=== PATIENT | female | born 1970 | race Caucasian/White ===

== ENCOUNTER → 2017-09-13 | Outpatient (CLI) | payer BC ==
[2017-09-14 15:11] LABS: Crab IgE <0.35 kU/L (<0.35); Crab IgE Class CLASS 0
[2017-09-14 15:12] LABS: Avocado Class CLASS 0; Banana IgE Class CLASS 0; Hazelnut IgE <0.35 kU/L (<0.35); Hazelnut IgE Class CLASS 0; Kiwi IgE <0.35 kU/L (<0.35); Latex IgE Class CLASS 0; Lobster IgE <0.35 kU/L (<0.35); Lobster IgE Class CLASS 0; Salmon IgE <0.35 kU/L (<0.35); Salmon IgE Class CLASS 0
== END | disposition home or self-care (01) ==
LOC: LABWHC1 13:53
PROVIDERS: ATTEND Otolaryngology
DX: J30.89 Other allergic rhinitis (principal)
CPT/HCPCS: 36415; 86003

== ENCOUNTER 2018-09-16 15:43 | Emergency (ER) | payer BC ==
[2018-09-16] MEDS ORDERED: SODIUM CHLORIDE 0.9% 500 ML 500 ML IV STA (15:49)
[2018-09-16] MEDS ORDERED: ASPIRIN 81 MG PO STA (15:49)
[2018-09-16 16:28] LABS: Basophils # (A) 0.1 k/uL (0-0.2); Basophils % (A) 1 %; Eosinophils # (A) 0.1 k/uL (0-0.7); Eosinophils % (A) 1 %; HCT 43.1 % (34.0-46.0); HGB 14.2 gm/dL (11.4-16.0); Lymphocytes # (A) 1.1 k/uL (1.0-4.8); Lymphocytes % (A) 17 %; MCH 29.8 pg (25.0-35.0); MCHC 33.1 g/dL (31.0-37.0); Mean Platelet Volume 8.2; Monocytes # (A) 0.3 k/uL (0-1.0); Monocytes % (A) 5 %; Neutrophils # (A) 4.6 k/uL (1.3-7.7); Neutrophils % (A) 74 %; Platelet Count 241 k/uL (150-450); RBC 4.78 m/uL (3.80-5.40); RDW 12.4 % (11.5-15.5); WBC 6.2 k/uL (3.8-10.6)
[2018-09-16 16:32] LABS: ALT 26 U/L (9-52); AST 27 U/L (14-36); Alkaline Phosphatase 57 U/L (38-126); Anion Gap 10 mmol/L; Blood Urea Nitrogen 15 mg/dL (7-17); Calcium 10.4 mg/dL (8.4-10.2); Carbon Dioxide 24 mmol/L (22-30); Chloride 106 mmol/L (98-107); Glucose 98 mg/dL (74-99); Magnesium 1.8 mg/dL (1.6-2.3); Sodium 140 mmol/L (137-145); Total Bilirubin 0.5 mg/dL (0.2-1.3); Total Protein 8.4 g/dL (6.3-8.2)
--- NOTE | 2018-09-16 16:41 | ED ---
Arrhythmia/Palpitations HPI - General Chief Complaint: Arrhythmia/Palpitations Stated Complaint: Heart Palpitations Time Seen by Provider: 09/16/18 15:48 Source: patient Mode of arrival: ambulatory Limitations: no limitations - History of Present Illness Initial Comments: 47 year old female presenting today for chief complaint of palpitations. Patient states the past 5 years she has had heart palpitations that come and go she noticed that increased during menstruation and at night. Patient states she is currently menstruating. Patient states the past 2 months they seem to be increasing. Patient takes Xanax for severe anxiety. Patient states that also for the past 5 years she has had a flashing light in her vision bilaterally she states happens every 2-5 minutes. She states she has had extensive examination by ophthalmology, who states she has no damage to her retina. Patient denies a visual loss or diplopia. She was told to follow-up with a mechanical manufacturing engineer which she has not. Patient states that the times when she has palpitations she notices occasional sharp pinch the left side of her chest. She states at times it radiates towards the back or the shoulder. Patient denies a pattern with exertion. She states it happens often times at night. Patient states that she has had multiple DVTs that occur only after a . She states she has had 4 C-sections total. Patient states she did have a left lower extremity DVT after her fourth and has had chronic pain and swelling in that leg since. Patient denies any shortness of breath. She states she is very anxious. Patient states her palpitations this time began last night increased around 1:30 PM today and that is when she felt the pinch in the left side of her chest. Patient denies any chest pressure jaw pain or extremity paresthesias. Patient denies any speech changes or headache. Patient states she took 0.25 of Xanax prior to arrival. Upon arrival patient states her palpitations have resolved she states she is starting to feel better. Patient states upon review of systems that she has a chronic cough, for years denies any changes. Denies hemo ptysis denies any recent surgeries or travel. Remaining review of systems negative. Patient denies any fever or chills night sweats dysuria urgency frequency. - Related Data Previous Rx's Medication Instructions Recorded ALPRAZolam [Xanax] 0.5 mg PO HS PRN 4 Days #4 tab 09/16/18 Allergies Allergy/AdvReac Type Severity Reaction Status Date / Time codeine Allergy Unknown Verified 09/16/18 15:47 Review of Systems ROS Statement: Those systems with pertinent positive or pertinent negative responses have been documented in the HPI. ROS Other: All systems not noted in ROS Statement are negative. Past Medical History Additional Past Medical History / Comment(s): palpitations History of Any Multi-Drug Resistant Organisms: None Reported Past Surgical History: Section Past Psychological History: Anxiety Smoking Status: Never smoker Past Alcohol Use History: None Reported Past Drug Use History: None Reported General Exam - General Exam Comments Initial Comments: General: The patient is awake and alert, in no distress, and does not appear acutely ill. Eye: +3 mm pupils are equal, round and reactive to light, extra-ocular movements are intact. No nystagmus. There is normal conjunctiva bilaterally. No signs of icterus. Ears, nose, mouth and throat: There are moist mucous membranes and no oral lesions. Neck: The neck is supple, there is no tenderness or JVD. Cardiovascular: There is a regular rate and rhythm. No murmur, rub or gallop is appreciated. Respiratory: Lungs are clear to auscultation, respirations are non-labored, breath sounds are equal. No wheezes, stridor, rales, or rhonchi. Gastrointestinal: Soft, non-distended, non-tender abdomen without masses or organomegaly noted. There is no rebound or guarding present. Bowel sounds are unremarkable. Musculoskeletal: Normal ROM, no tenderness. Strength 5/5. Sensation intact. DP and radial pulses equal bilaterally 2+. Neurological: A&O x 3. CN II-XII intact, There are no obvious motor or sensory deficits. Coordination appears grossly intact. Speech is normal. Skin: Skin is warm and dry and no rashes or lesions are noted. No lower extremity edema noted. Negative Homans. No pain to palpation of the cast posteriorly bilaterally. Psychiatric: Cooperative, appropriate mood & affect, normal judgment. Limitations: no limitations Course Vital Signs 09/16/18 09/16/18 15:43 17:49 Temperature 97.7 F 97.9 F Pulse Rate 77 89 Respiratory 18 16 Rate Blood Pressure 143/88 120/74 O2 Sat by Pulse 99 98 Oximetry EKG Findings - EKG Comments: EKG Findings:: Ventricular rate 85 bpm, ID interval 114 ms, short duration 88 ms, QT/QTC 366/435 ms. This is normal sinus there is nonspecific ST abnormality. NO ST elevation or depression. No findings consistent with ischemic disease EKG was evaluated by myself as well as my attending provider Dr Slade. Medical Decision Making - Medical Decision Making Appearing 47-year-old female with history of anxiety presenting today for chief complaint of heart palpitations. She states that she has no current symptoms. Patient states she did take 0.25 of her 's Xanax prior to arrival she states this seemed to help. Patient states she has had these symptoms on and off for the past 5 years. Patient denies any shortness of breath. Patient describes the pain as sharp. Patient this appears atypical she denies any pattern with exertion. Upon examination there is no lower extremity edema. No heart murmur. Chest x-ray within normal limits. Initial troponin negative. Patient continues to remain asymptomatic. No EKG findings consistent with ischemia. This EKG was evaluated in person by attending provider Dr. Mendieta. Viewed left her studies and imaging studies. At this time feel this could be possibly anxiety reaction however we recommended further outpatient evaluation with cardiology including Holter monitor. Patient is agreeable care plan as well as discharge this time. Patient provided prescription for 0.5 mg Xanax nightly x4 days. Opiate use and administration of medication as discussed at length the patient verbalizes understanding. Patient was discharged appearing well, attending provider agreeable with plan. Return parameters were discussed at length with patient prior to patient's discharge verbalizes understanding. - Lab Data Result diagrams: 09/16/18 16:00 09/16/18 16:00 Lab Results 09/16/18 09/16/18 09/16/18 Range/Units 16:00 16:00 16:00 WBC 6.2 (3.8-10.6) k/uL RBC 4.78 (3.80-5.40) m/uL Hgb 14.2 (11.4-16.0) gm/dL Hct 43.1 (34.0-46.0) % MCV 90.0 (80.0-100.0) fL MCH 29.8 (25.0-35.0) pg MCHC 33.1 (31.0-37.0) g/dL RDW 12.4 (11.5-15.5) % Plt Count 241 (150-450) k/uL Neutrophils % 74 % Lymphocytes % 17 % Monocytes % 5 % Eosinophils % 1 % Basophils % 1 % Neutrophils # 4.6 (1.3-7.7) k/uL Lymphocytes # 1.1 (1.0-4.8) k/uL Monocytes # 0.3 (0-1.0) k/uL Eosinophils # 0.1 (0-0.7) k/uL Basophils # 0.1 (0-0.2) k/uL PT 10.3 (9.0-12.0) sec INR 1.0 (<1.2) APTT 25.5 (22.0-30.0) sec D-Dimer 0.28 (<0.60) mg/L FEU Sodium 140 (137-145) mmol/L Potassium 4.0 (3.5-5.1) mmol/L Chloride 106 (98-107) mmol/L Carbon Dioxide 24 (22-30) mmol/L Anion Gap 10 mmol/L BUN 15 (7-17) mg/dL Creatinine 0.84 (0.52-1.04) mg/dL Est GFR (CKD-EPI)AfAm >90 (>60 ml/min/1.73 sqM) Est GFR (CKD-EPI)NonAf 84 (>60 ml/min/1.73 sqM) Glucose 98 (74-99) mg/dL Calcium 10.4 H (8.4-10.2) mg/dL Magnesium 1.8 (1.6-2.3) mg/dL Total Bilirubin 0.5 (0.2-1.3) mg/dL AST 27 (14-36) U/L ALT 26 (9-52) U/L Alkaline Phosphatase 57 (38-126) U/L Troponin I (0.000-0.034) ng/mL Total Protein 8.4 H (6.3-8.2) g/dL Albumin 5.0 (3.5-5.0) g/dL TSH 1.640 (0.465-4.680) mIU/L Urine Color Urine Appearance (Clear) Urine pH (5.0-8.0) Ur Specific [place] (1.001-1.035) Urine Protein (Negative) Urine Glucose (UA) (Negative) Urine Ketones (Negative) Urine Blood (Negative) Urine Nitrite (Negative) Urine Bilirubin (Negative) Urine Urobilinogen (<2.0) mg/dL Ur Leukocyte Esterase (Negative) Urine RBC (0-5) /hpf Urine WBC (0-5) /hpf Urine Opiates Screen (NotDetected) Ur Oxycodone Screen (NotDetected) Urine Methadone Screen (NotDetected) Ur Propoxyphene Screen (NotDetected) Ur Barbiturates Screen (NotDetected) U Tricyclic Antidepress (NotDetected) Ur Phencyclidine Scrn (NotDetected) Ur Amphetamines Screen (NotDetected) U Methamphetamines Scrn (NotDetected) U Benzodiazepines Scrn (NotDetected) Urine Cocaine Screen (NotDetected) U Marijuana (THC) Screen (NotDetected) 09/16/18 09/16/18 Range/Units 16:00 16:45 WBC (3.8-10.6) k/uL RBC (3.80-5.40) m/uL Hgb (11.4-16.0) gm/dL Hct (34.0-46.0) % MCV (80.0-100.0) fL MCH (25.0-35.0) pg MCHC (31.0-37.0) g/dL RDW (11.5-15.5) % Plt Count (150-450) k/uL Neutrophils % % Lymphocytes % % Monocytes % % Eosinophils % % Basophils % % Neutrophils # (1.3-7.7) k/uL Lymphocytes # (1.0-4.8) k/uL Monocytes # (0-1.0) k/uL Eosinophils # (0-0.7) k/uL Basophils # (0-0.2) k/uL PT (9.0-12.0) sec INR (<1.2) APTT (22.0-30.0) sec D-Dimer (<0.60) mg/L FEU Sodium (137-145) mmol/L Potassium (3.5-5.1) mmol/L Chloride (98-107) mmol/L Carbon Dioxide (22-30) mmol/L Anion Gap mmol/L BUN (7-17) mg/dL Creatinine (0.52-1.04) mg/dL Est GFR (CKD-EPI)AfAm (>60 ml/min/1.73 sqM) Est GFR (CKD-EPI)NonAf (>60 ml/min/1.73 sqM) Glucose (74-99) mg/dL Calcium (8.4-10.2) mg/dL Magnesium (1.6-2.3) mg/dL Total Bilirubin (0.2-1.3) mg/dL AST (14-36) U/L ALT (9-52) U/L Alkaline Phosphatase (38-126) U/L Troponin I <0.012 (0.000-0.034) ng/mL Total Protein (6.3-8.2) g/dL Albumin (3.5-5.0) g/dL TSH (0.465-4.680) mIU/L Urine Color Colorless Urine Appearance Clear (Clear) Urine pH 5.0 (5.0-8.0) Ur Specific [place] 1.002 (1.001-1.035) Urine Protein Negative (Negative) Urine Glucose (UA) Negative (Negative) Urine Ketones Negative (Negative) Urine Blood Moderate H (Negative) Urine Nitrite Negative (Negative) Urine Bilirubin Negative (Negative) Urine Urobilinogen <2.0 (<2.0) mg/dL Ur Leukocyte Esterase Negative (Negative) Urine RBC 1 (0-5) /hpf Urine WBC <1 (0-5) /hpf Urine Opiates Screen Not Detected (NotDetected) Ur Oxycodone Screen Not Detected (NotDetected) Urine Methadone Screen Not Detected (NotDetected) Ur Propoxyphene Screen Not Detected (NotDetected) Ur Barbiturates Screen Not Detected (NotDetected) U Tricyclic Antidepress Not Detected (NotDetected) Ur Phencyclidine Scrn Not Detected (NotDetected) Ur Amphetamines Screen Not Detected (NotDetected) U Methamphetamines Scrn Not Detected (NotDetected) U Benzodiazepines Scrn Detected H (NotDetected) Urine Cocaine Screen Not Detected (NotDetected) U Marijuana (THC) Screen Not Detected (NotDetected) Disposition Clinical Impression: Palpitations, Atypical chest pain, Anxiety Disposition: HOME SELF-CARE Condition: Good Instructions (If sedation given, give patient instructions): Heart Palpitations (ED) Additional Instructions: Please use medication as discussed. Please follow-up with cardiology as discussed and primary care provider. Please return to emergency room if the symptoms increase or worsen or for any other concerns-return of pain. Prescriptions: ALPRAZolam [Xanax] 0.5 mg PO HS PRN 4 Days #4 tab PRN Reason: Anxiety Is patient prescribed a controlled substance at d/c from ED?: Yes When asked, does pt state using other controlled substances?: No If prescribed controlled substance>3 days was MAPS reviewed?: No Referrals: None,Stated [Primary Care Provider] - 1-2 days Isaac Wilkerson MD [REFERRING] - 1-2 days Arielle Edmonds DO [REFERRING] - 1-2 days Esequiel Whitfield MD [STAFF PHYSICIAN] - 1-2 days Time of Disposition: 17:31
[2018-09-16 16:43] LABS: D-Dimer 0.28 mg/L FEU (<0.60); Partial Thromboplastin Time 25.5 sec (22.0-30.0); Prothrombin Time 10.3 sec (9.0-12.0)
--- NOTE | 2018-09-16 16:56 | XR ---
EXAMINATION TYPE: XR chest 2V DATE OF EXAM: 09/16/2018 COMPARISON: NONE HISTORY: Palpitations TECHNIQUE: Frontal and lateral views of the chest are obtained. FINDINGS: There is no focal air space opacity, pleural effusion, or pneumothorax seen. The cardiac silhouette size is within normal limits. The osseous structures are intact. IMPRESSION: No acute cardiopulmonary process.
[2018-09-16 16:57] LABS: Appearance,Urine Clear (Clear); Bilirubin,Urine Negative (Negative); Blood,Urine Moderate (Negative); Color,Urine Colorless; Glucose,Urine (UA) Negative (Negative); Ketones,Urine Negative (Negative); Leukocyte Esterase,Urine Negative (Negative); Nitrite,Urine Negative (Negative); Protein,Urine Negative (Negative); RBC,Urine 1 /hpf (0-5); Specific Gravity,Urine 1.002 (1.001-1.035); Urobilinogen,Urine <2.0 mg/dL (<2.0); WBC,Urine <1 /hpf (0-5)
[2018-09-16 17:03] LABS: Amphetamine Screen,Urine Not Detected (NotDetected); Barbiturate Screen,Urine Not Detected (NotDetected); Benzodiazepines Screen,Urine Detected (NotDetected); Cocaine Screen,Urine Not Detected (NotDetected); Methadone Screen, Urine Not Detected (NotDetected); Opiate Screen,Urine Not Detected (NotDetected); Oxycodone Screen, Urine Not Detected (NotDetected); Phencyclidine Screen,Urine Not Detected (NotDetected); Tricyclic Antidepressant,Urine Not Detected (NotDetected); Urn Cannabinoid Scrn Not Detected (NotDetected)
[2018-09-16 17:51] VITALS: BP 120/74; PULSE 89; RESP 16; TEMP 97.9
== END 2018-09-16 17:51 | disposition home or self-care (01) ==
LOC: EC 15:43
DX: F41.9 Anxiety disorder, unspecified (principal); R07.89 Other chest pain; H53.149 Visual discomfort, unspecified; G89.29 Other chronic pain; M79.89 Other specified soft tissue disorders; M79.605 Pain in left leg; R05 Cough; Z88.5 Allergy status to narcotic agent; Z86.718 Personal history of other venous thrombosis and embolism; Z86.79 Personal history of other diseases of the circulatory system
CPT/HCPCS: 36415; 71046; 80053; 80306; 81001; 83735; 84443; 84484; 85025; 85379; 85610; 85730; 93005; 96360; 99285

== ENCOUNTER 2020-11-29 19:06 | Emergency (ER) | payer BC ==
[2020-11-29 19:11] VITALS: TEMP 98
[2020-11-29] MEDS: HYDROmorphone 1 MG/ML 1 ML SYRINGE IVP STA (19:47)
[2020-11-29 20:07] LABS: Basophils # (A) 0.1 k/uL (0-0.2); Basophils % (A) 1 %; Eosinophils # (A) 0.1 k/uL (0-0.7); Eosinophils % (A) 1 %; HCT 42.1 % (34.0-46.0); HGB 14.4 gm/dL (11.4-16.0); Lymphocytes # (A) 1.1 k/uL (1.0-4.8); Lymphocytes % (A) 13 %; MCH 31.8 pg (25.0-35.0); MCHC 34.2 g/dL (31.0-37.0); MCV 92.9 fL (80.0-100.0); Mean Platelet Volume 9.5; Monocytes # (A) 0.4 k/uL (0-1.0); Monocytes % (A) 4 %; Neutrophils # (A) 6.6 k/uL (1.3-7.7); Neutrophils % (A) 80 %; Platelet Count 204 k/uL (150-450); RBC 4.53 m/uL (3.80-5.40); RDW 11.8 % (11.5-15.5); WBC 8.2 k/uL (3.8-10.6)
[2020-11-29 20:17] LABS: ALT 19 U/L (4-34); AST 33 U/L (14-36); African American GFR (CKD) >90 (>60 ml/min/1.73 sqM); Albumin 4.5 g/dL (3.5-5.0); Alkaline Phosphatase 53 U/L (38-126); Anion Gap 11 mmol/L; Blood Urea Nitrogen 17 mg/dL (7-17); Calcium 9.8 mg/dL (8.4-10.2); Carbon Dioxide 21 mmol/L (22-30); Chloride 107 mmol/L (98-107); Glucose 93 mg/dL (74-99); Non-African American GFR(CKD) 90 (>60 ml/min/1.73 sqM); Sodium 139 mmol/L (137-145); Total Bilirubin 0.4 mg/dL (0.2-1.3); Total Protein 7.6 g/dL (6.3-8.2)
--- NOTE | 2020-11-29 20:57 | CT ---
EXAMINATION TYPE: CT abdomen pelvis w con DATE OF EXAM: 11/29/2020 COMPARISON: None HISTORY: Fall from ladder, RT flank pain, tailbone/low back pain. CT DLP: 526.3 mGycm Automated exposure control for dose reduction was used. CONTRAST: Performed with IV Contrast, patient injected with 100 mL of Isovue 300. Images obtained from the diaphragm to the floor the pelvis with IV contrast. Lung bases are clear. There is no pleural effusion. Heart size is normal. There is no pericardial eff usion. Liver spleen stomach pancreas gallbladder appear intact. The bile ducts are not dilated. There is 1 cm cyst in the lateral right lobe of the liver. There is no adrenal mass. Kidneys show satisfac tory contrast opacification. There is no hydronephrosis. Delayed images show normal renal excretion. There is no retroperitoneal adenopathy. Bladder distends smoothly. Uterus is anteverted. There is no inguinal hernia. There is no evidence of a pelvic mass. There is no free fluid in the pelvis. There is no mesenteric edema. There is no ascites or free air. Appendix appears normal. There is no bowel obstruction. The lumbar vertebra have normal alignment. There is 15% compression deformity of L1 vertebral body. T his appears to be an acute compression fracture. The posterior elements are intact. Bony pelvis is in tact. Hip joints are intact. Sacroiliac joints are normal. There is no lumbar paraspinal mass. IMPRESSION: Acute mild compression fracture of L1 vertebral body.
--- NOTE | 2020-11-29 21:23 | ED ---
Fall HPI - General Chief Complaint: Fall Stated Complaint: Fell off a ladder Time Seen by Provider: 11/29/20 19:16 Source: patient, family, RN notes reviewed Mode of arrival: wheelchair - History of Present Illness Initial Comments: Patient is a 50-year-old female that presents to the emergency department complaining of fall from a 6 foot stepladder. She notes she was approximately 4 feet off the ground when she lost her balance falling landing on her butt. She notes that she has right flank pain and some tailbone pain. She notes that she is able to urinate and use the bathroom. She notes that she has radicular symptoms down her right leg. She denied any other issues or complaints. She noted that she does not take blood thinners and did not lose consciousness or h it her head. She denied any chest pain shortness of breath headache nausea vomiting diarrhea constipation fever fatigue chills. - Related Data Previous Rx's Medication Instructions Recorded Ketorolac [Toradol] 10 mg PO Q8HR #15 tab 11/29/20 Allergies Allergy/AdvReac Type Severity Reaction Status Date / Time codeine Allergy Hives/Shortness Verified 11/29/20 19:37 of Breath coffee (Coffea arabica) Allergy Hives/Shortness Verified 11/29/20 19:37 of Breath egg Allergy Hives/Shortness Verified 11/29/20 19:37 of Breath Milk Containing Products Allergy Hives/Shortness Verified 11/29/20 19:37 [Dairy] of Breath Mushroom Allergy Hives/Shortness Verified 11/29/20 19:37 of Breath mushroom Allergy Hives/Shortness Verified 11/29/20 19:37 of Breath peanut Allergy Hives/Shortness Verified 11/29/20 19:37 of Breath pineapple Allergy Hives/Shortness Verified 11/29/20 19:37 of Breath Yeast Allergy Hives/Shortness Verified 11/29/20 19:37 of Breath Review of Systems ROS Statement: Those systems with pertinent positive or pertinent negative responses have been documented in the HPI. ROS Other: All systems not noted in ROS Statement are negative. Past Medical History Additional Past Medical History / Comment(s): palpitations History of Any Multi-Drug Resistant Organisms: None Reported Past Surgical History: Section Past Psychological History: Anxiety Past Alcohol Use History: None Reported Past Drug Use History: None Reported General Exam General appearance: alert, in no apparent distress Head exam: Present: atraumatic, normocephalic, normal inspection Eye exam: Present: normal appearance, PERRL, EOMI. Absent: scleral icterus, conjunctival injection, periorbital swelling Neck exam: Present: normal inspection Respiratory exam: Present: normal lung sounds bilaterally. Absent: respiratory distress, wheezes, rales, rhonchi, stridor Cardiovascular Exam: Present: regular rate, normal rhythm, normal heart sounds. Absent: systolic murmur, diastolic murmur, rubs, gallop, clicks GI/Abdominal exam: Present: soft, normal bowel sounds. Absent: distended, tenderness, guarding, rebound, rigid Extremities exam: Present: normal inspection, normal capillary refill, other (Full sensation in bilateral lower extremities, no saddle anesthesia.). Absent: full ROM (Right lower extremity secondary to pain and radicular symptoms.), tenderness, pedal edema, joint swelling, calf tenderness Back exam: Present: normal inspection, tenderness (Right flank.) Neurological exam: Present: alert, oriented X3 Psychiatric exam: Present: normal affect, normal mood Skin exam: Present: warm, dry, intact, normal color. Absent: rash Course Vital Signs 11/29/20 19:07 Temperature 98.0 F Pulse Rate 92 Respiratory 20 Rate Blood Pressure 121/63 O2 Sat by Pulse 100 Oximetry Medical Decision Making - Medical Decision Making 50-year-old female status post fall from step ladder complaining of right flank and low back pain. Basic labs, CT of the abdomen and pelvis with contrast ordered. Labs unremarkable. CT shows a compression fracture of L1 vertebrae. Case discussed with Dr. Singh, patient discharge home with follow-up to orthopedics - Lab Data Result diagrams: 11/29/20 19:45 11/29/20 19:45 Lab Results 11/29/20 11/29/20 Range/Units 19:45 19:45 WBC 8.2 (3.8-10.6) k/uL RBC 4.53 (3.80-5.40) m/uL Hgb 14.4 (11.4-16.0) gm/dL Hct 42.1 (34.0-46.0) % MCV 92.9 (80.0-100.0) fL MCH 31.8 (25.0-35.0) pg MCHC 34.2 (31.0-37.0) g/dL RDW 11.8 (11.5-15.5) % Plt Count 204 (150-450) k/uL MPV 9.5 Neutrophils % 80 % Lymphocytes % 13 % Monocytes % 4 % Eosinophils % 1 % Basophils % 1 % Neutrophils # 6.6 (1.3-7.7) k/uL Lymphocytes # 1.1 (1.0-4.8) k/uL Monocytes # 0.4 (0-1.0) k/uL Eosinophils # 0.1 (0-0.7) k/uL Basophils # 0.1 (0-0.2) k/uL Sodium 139 (137-145) mmol/L Potassium 4.0 (3.5-5.1) mmol/L Chloride 107 (98-107) mmol/L Carbon Dioxide 21 L (22-30) mmol/L Anion Gap 11 mmol/L BUN 17 (7-17) mg/dL Creatinine 0.78 (0.52-1.04) mg/dL Est GFR (CKD-EPI)AfAm >90 (>60 ml/min/1.73 sqM) Est GFR (CKD-EPI)NonAf 90 (>60 ml/min/1.73 sqM) Glucose 93 (74-99) mg/dL Calcium 9.8 (8.4-10.2) mg/dL Total Bilirubin 0.4 (0.2-1.3) mg/dL AST 33 (14-36) U/L ALT 19 (4-34) U/L Alkaline Phosphatase 53 (38-126) U/L Total Protein 7.6 (6.3-8.2) g/dL Albumin 4.5 (3.5-5.0) g/dL - Radiology Data Radiology results: report reviewed, image reviewed CT of the abdomen and pelvis: Acute mild compression fracture of L1 vertebral body. Disposition Clinical Impression: Lumbar compression fracture Disposition: HOME SELF-CARE Condition: Stable Instructions (If sedation given, give patient instructions): Acute Low Back Pain (ED) Additional Instructions: Please return to the Emergency Department if symptoms worsen or any other concerns. Follow-up with primary care in the next several days. Follow-up with orthopedics in the next oral days. Take pain medication as prescribed. Avoid any strenuous activity or exercise. Is patient prescribed a controlled substance at d/c from ED?: No Referrals: Arielle Edmonds DO [Primary Care Provider] - 1-2 days Kd Cordon DO [Doctor of Osteopathic Medicine] - 1-2 days Time of Disposition: 21:23
[2020-11-29] MEDS: HYDROmorphone 0.5 MG/0.5 ML SYRINGE IVP STA (21:45)
[2020-11-29 21:47] VITALS: BP 131/84; PULSE 84; RESP 18
== END 2020-11-29 22:02 | disposition home or self-care (01) ==
LOC: EC 19:06
DX: S32.010A Wedge compression fracture of first lumbar vertebra, initial encounter for closed fracture (principal); F41.9 Anxiety disorder, unspecified; W11.XXXA Fall on and from ladder, initial encounter
CPT/HCPCS: 36415; 74177; 80053; 85025; 96374; 96376; 99284